=== PATIENT | male | born 1970 | race Caucasian/White ===

== ENCOUNTER 2022-02-08 06:44 | Day surgery (SDC) | payer OTHER ==
[~2022-02-08] VITALS: Ht 182.9 cm; Wt 86.2 kg
--- NOTE | 2022-02-08 06:50 | NUR ---
PT ARRIVED TO SUITE WITH GASTON, BOTH HAVE BEEN EXPLAINED OF POC, ALL QUESTIONS HAVE BEEN ANSWERED. PT HAS BEEN ORIENTED TO ROOM, AND CALL LIGHT, PT HAS BEEN PLACED ON FALL PRECAUTIONS AND IS AWARE TO CALL WHEN IN NEED OF ASSISTANCE. PT HAS SX OF WITHDRAWL AND WILL BE APPROPRIATELY MEDICATED. WILL CONTINUE TO MONITOR.
[2022-02-08 07:27] LABS: HEMOGLOBIN 16.2 g/dl (14.0-18.0); IMMATURE GRANULOCYTES 0.1 % (0.0-5.0); MEAN CELL VOLUME 89.7 fL CALC (80.0-100.0); MEAN CORPUSCULAR HGB 30.3 pG CALC (26.0-32.0); MEAN CORPUSCULAR HGB CONC 33.8 g/dL CAL (32.0-36.0); NEUT# 4.76 thou/uL (1.82-7.42); RED BLOOD COUNT 5.35 mill/uL (4.70-6.10); RED CELL DISTRI WIDTH 11.9 % (11.5-15.5)
--- NOTE | 2022-02-08 08:00 | NUR ---
IV WAS PLACED VIA U/S.
[2022-02-08 08:17] LABS: ALBUMIN 4.9 g/dL (3.2-5.0); ALKALINE PHOSPHATASE 57 u/l (38-126); ANION GAP 12 (6-22 (CALC)); BILIRUBIN, TOTAL 0.3 mg/dL (0.0-1.4); BUN 21 mg/dL (9-20); BUN/CREATININE RATIO 22 (12-20 (CALC)); CARBON DIOXIDE 27 mmol/l (22-30); CHLORIDE 104 mmol/l (95-108); CREATININE 0.9 mg/dL (0.7-1.3); GFR FOR AFR.AMER. > 60 ML/MIN (>=60 (CALC)); GFR OTHER RACES > 60 ML/MIN (>=60 (CALC)); POTASSIUM 4.3 mmol/l (3.5-5.1); SGOT/AST 50 u/l (17-59); SODIUM 139 mmol/l (137-146); TOTAL PROTEIN 7.9 g/dL (6.3-8.2)
--- NOTE | 2022-02-08 09:16 | NUR ---
PT HAS BEEN REASSESSED, AND PT NOT SLEEPY AND EXPERIENCING WITHDRAWL SYMPTOMS, PT HAS BEEM MEDICATED PER ORDER. WILL CONTINUE TO MONITOR.
--- NOTE | 2022-02-08 11:30 | NUR ---
Induction Note Patient to [facility] procedure room. Time out performed at 1130. Patient placed on monitors, Jorge hugger, bilateral wrist restraints applied for ET tube protection. Versed 5mg given IV push at 1131 Tourniquet applied to LEFT arm Lidocaine 100mg given at 1132 IV push followed by Rocoronium 10mg at 1133 IV push and held for 90 seconds. Propofol bolus of 130mg given at 1135 IV push. Succinylcholine 80mg given IV push at 1136. Smooth intubation with 7.5 ETT. Positive CO2. Positive Auscultation for air exchange. Patient placed on ventilator for spontaneous ventilation. Placed on Propofol IV drip at 1137. OG inserted. Positive air on auscultation. Positive gastric content. Stomach washed at this time.
--- NOTE | 2022-02-08 11:40 | NUR ---
OG close note Stomach washed at this time. Naltrexone 50 mg with Clonidine 0.2 mg via OG tube. OG will be clamped for 45 minutes.
--- NOTE | 2022-02-08 12:25 | NUR ---
OG open note OG open at this time. Gastric content draining into drainage bag. OG to drain for 45 minutes. Propofol will be titrated down based on patient.
--- NOTE | 2022-02-08 13:15 | NUR ---
OG close note Stomach washed at this time. Naltrexone 50 mg with Clonidine 0.2 mg via OG tube. OG will be clamped for 45 minutes.
[2022-02-08] MEDS ORDERED: NALTREXONE50 MG PO (15:45)
[2022-02-08] MEDS ORDERED: KLONOPIN2 MG PO (15:45)
[2022-02-08] MEDS ORDERED: CLONIDINE0.1 MG PO (15:46)
--- NOTE | 2022-02-08 18:05 | NUR ---
OG close note Stomach washed at this time. Naltrexone 25 mg with Clonidine 0.2 mg via OG tube. OG will be clamped for 45 minutes.
--- NOTE | 2022-02-08 18:45 | NUR ---
Extubation note Closing medications given Benadryl 50mg IV push, Decadron 10mg IV push,Magnesium 4 grams IV, Zofran 8mg IV push, Octreotide 100mcg SC. Stomach washed out prior to extubation. Suctioned gastric content. OG removed. Patient extubated. Propofol Discontinued. Wrist restraints removed. Jorge hugger Removed. See [facility] Moderate sedate recovery record for further notes and assessment.
[2022-02-08 19:27] VITALS: BP 134/80
--- NOTE | 2022-02-08 19:27 | NUR ---
PATIENT RESTING IN BED. EYES CLOSED. NO SIGNS OF DISTRESS NOTED. NO SIGNS OF PAIN. VS STABLE. BED IN LOW POSITION. BED ALARM ACTIVE FOR SAFETY REASONS.
--- NOTE | 2022-02-08 19:40 | NUR ---
REPORT GIVEN TO ASAEL [place], PT IS DROWSY, AROUSABLE TO VERBAL STIMULI. PT HAS 2LNC, LR INFUSING @ 125ML/HR. BED ALARM IS ACTIVE, VSS.
--- NOTE | 2022-02-08 21:37 | NUR ---
PATIENT RESTING IN BED ON HIS RIGHT SIDE. SLOWLY MAKING MOVEMENTS. NO SIGNS OF DISTRESS. NO SIGNS OF PAIN. BED REMAINS IN LOW POSITION. BED ALARM ACTIVE FOR SAFETY.
[2022-02-08 22:33] VITALS: BP 153/96
--- NOTE | 2022-02-08 23:50 | NUR ---
PATIENT RESTING IN BED. ALERT AND ABLE TO MAKE NEEDS KNOWN. CHANGES POSITION BY SELF. NO PAIN COMPLAINED, NO SIGNS OF DISTRESS. BED REMAINS IN LOW POSITION. BED ALARM ACTIVE FOR SAFETY.
[2022-02-09 04:29] VITALS: BP 134/66
--- NOTE | 2022-02-09 04:44 | NUR ---
PATIENT RECEIVED ALL 0400 MEDS. PRN TORADOL GIVEN PER REQUEST DUE TO GEN PAIN. REMAINS ALERT AND ABLE TO MAKE NEEDS KNOWN. TURNS SELF IN BED. CURRENTLY HAS SELF LAYING AT THE FOOT OF THE BED. BED REMAINS IN LOW POSITION. BED ALARM ACTIVE FOR SAFETY.
[2022-02-09 05:49] LABS: HEMATOCRIT 45.9 % (39.0-50.0); HEMOGLOBIN 15.6 g/dl (14.0-18.0); IMMATURE GRANULOCYTES 0.2 % (0.0-5.0); MEAN CELL VOLUME 88.3 fL CALC (80.0-100.0); NEUT# 10.99 thou/uL (1.82-7.42); RED BLOOD COUNT 5.2 mill/uL (4.70-6.10); RED CELL DISTRI WIDTH 11.7 % (11.5-15.5)
[2022-02-09 06:13] LABS: ALBUMIN 4.4 g/dL (3.2-5.0); ALKALINE PHOSPHATASE 57 u/l (38-126); ANION GAP 13 (6-22 (CALC)); BUN 18 mg/dL (9-20); BUN/CREATININE RATIO 18 (12-20 (CALC)); CARBON DIOXIDE 26 mmol/l (22-30); CHLORIDE 107 mmol/l (95-108); GFR FOR AFR.AMER. > 60 ML/MIN (>=60 (CALC)); GFR OTHER RACES > 60 ML/MIN (>=60 (CALC)); MAGNESIUM 2.3 mg/dL (1.6-2.3); POTASSIUM 3.9 mmol/l (3.5-5.1); SGOT/AST 46 u/l (17-59); SODIUM 141 mmol/l (137-146); TOTAL PROTEIN 7.4 g/dL (6.3-8.2)
[2022-02-09 07:00] VITALS: BP 111/61
--- NOTE | 2022-02-09 07:02 | NUR ---
REPORT FROM SAMANTA VYAS. ASSUMED PT CARE.
--- NOTE | 2022-02-09 09:10 | NUR ---
NOTIFIED DR. VIECNTE OF POTASSIUM 3.9. PT CONTINUES WITH LOOSE STOOL. ORDERS RECEIVED AT THIS TIME. WILL MEDICATE AND CONTINUE TO MONITOR.
[2022-02-09 11:54] VITALS: BP 109/55
--- NOTE | 2022-02-09 12:08 | NUR ---
PT SITTING UP IN BED EATING LUNCH. TOLERATING WELL. NO S/S OF NAUSEA NOTED. WILL CONTINUE TO MONITOR.
--- NOTE | 2022-02-09 15:02 | NUR ---
PT AMBULATING IN TRAN WITH STEADY GAIT. NO APPARENT DISTRESS NOTED. PT FOLLOWING COMMANDS. BACK INTO BED. ARTIE VYAS PRESENT. WILL CONTINUE TO MONITOR.
== END 2022-02-09 15:11 | disposition home or self-care (01) | DRG 897 ==
LOC: ANR 06:44 → MS2 06:44 → ANR 09:00
PROVIDERS: ATTEND Anesthesiology
DX: F11.20 Opioid dependence, uncomplicated (principal)
CPT/HCPCS: J2354